=== PATIENT | female | born 1985 | race Caucasian/White ===

== ENCOUNTER 2016-10-01 21:32 | Inpatient (IN) | payer OTHER ==
[~2016-10-01] VITALS: Ht 167.6 cm; Wt 156.0 kg
[~2016-10-01 21:32] MED LIST: ACETAMINOPHEN325 M1 PO; AUGMENTIN 875875 M1 PO; BENTYL 10 MG CA10 MG; DICLOXACILLIN250 M1 PO; DICLOXACILLIN250 M2 PO; ENDOCET 5-3251 EACH PO; FLEXERIL PO; IBUPROFEN 600600 M1 PO; IBUPROFEN200 M2 PO; LEVEMIR SUBQ; METFORMIN HCL500 MG PO; NOHOMEMEDICATIONS; NORCO 5-325 TA1 EACH PO; OXYCHLOROSENE; OXYCODONE HCL5 M1 PO; PERCOCET 5-3251 EACH PO; PRED FORTE 1% EY5 M1 OPHTHALMIC; TYLENOL325 MG PO; VICODIN 5-5001 EACH PO
[2016-10-01] MEDS ORDERED: GLUCOTROL5 MG PO (21:51)
[2016-10-01 22:59] LABS: URINE BILIRUBIN NEGATIVE (Negative); URINE BLOOD 2+ (Negative); URINE COLOR YELLOW; URINE GLUCOSE-RANDOM* 2+ (Negative); URINE KETONES 1+ (Negative); URINE LEUKOCYTES-REFLEX TRACE (Negative); URINE PROTEIN (DIPSTICK) 2+ (Negative); URINE UROBILINOGEN 0.2 E.U./dl (0.2-1.0)
[2016-10-01 23:11] LABS: CASTS None Seen /LPF (None Seen); SQUAMOUS 4-10 Moderate /LPF (0-3); URINE RBC 3-10 Few /HPF (0-2); URINE WBC-REFLEX 6-15 Few /HPF (0-5)
[2016-10-01 23:12] LABS: CRYSTALS None Seen /LPF (None Seen)
[2016-10-01 23:19] LABS: HEMATOCRIT 39.1 % (37.0-47.0); HEMOGLOBIN 13.4 gm/dL (12.0-15.0); MCH 28.4 pg (26.0-34.0); MCHC 34.2 g/dL (28.0-37.0); PLATELET COUNT 407 thou/uL (150-400); RBC 4.71 mil/uL (4.20-5.00); RDW 14.6 % (10.5-14.5); WBC 17.3 thou/uL (4.0-11.0)
[2016-10-01 23:22] LABS: MANUAL DIFF YES
[2016-10-01 23:26] LABS: CALCIUM 9.4 mg/dL (8.5-10.1); POTASSIUM 4.1 mmol/L (3.5-5.1)
[2016-10-01 23:32] LABS: ALBUMIN 3.4 g/dL (3.4-5.0); TOTAL BILIRUBIN 0.4 mg/dL (<0.1-1.0); TOTAL PROTEIN 8.7 g/dL (6.4-8.2)
[2016-10-01 23:42] LABS: ABSOLUTE NEUTROPHILS 15.4 thou/uL (1.4-8.2); TOTAL CELL COUNT 100
[2016-10-02] VITALS (7 sets, daily range): BP systolic 125–149; BP diastolic 76–89
[2016-10-03] VITALS (7 sets, daily range): BP systolic 120–156; BP diastolic 74–93
[2016-10-03 05:11] LABS: GLYCOHEMOGLOBIN (HGB A1C) 9.3 % (4.8-5.6)
[2016-10-03 10:36] LABS: BASOPHILS 0.3 % (0.0-2.0); EOSINOPHILS 0.1 % (0.0-3.0); HEMATOCRIT 34.9 % (37.0-47.0); HEMOGLOBIN 11.8 gm/dL (12.0-15.0); LYMPHOCYTES 13.5 % (24.0-44.0); MCH 28.2 pg (26.0-34.0); MCHC 33.8 g/dL (28.0-37.0); MCV 83.4 fL (80.0-100.0); MONOCYTES 11.2 % (1.0-8.0); POLYS 74.9 % (36.0-66.0); RBC 4.18 mil/uL (4.20-5.00); RDW 14.6 % (10.5-14.5); WBC 9.4 thou/uL (4.0-11.0)
[2016-10-03 10:37] LABS: PLATELET COUNT 308 thou/uL (150-400)
[2016-10-03 10:38] LABS: MANUAL DIFF NO
[2016-10-03 10:57] LABS: CALCIUM 8.5 mg/dL (8.5-10.1); CREATININE 0.7 mg/dL (0.6-1.0); POTASSIUM 3.8 mmol/L (3.5-5.1)
[2016-10-04 04:40] VITALS: BP 136/93
[2016-10-04 06:13] LABS: HEMATOCRIT 31.8 % (37.0-47.0); HEMOGLOBIN 11.1 gm/dL (12.0-15.0); MCH 28.5 pg (26.0-34.0); MCV 81.6 fL (80.0-100.0); RBC 3.89 mil/uL (4.20-5.00); RDW 14.5 % (10.5-14.5); WBC 8.6 thou/uL (4.0-11.0)
[2016-10-04 06:29] LABS: CALCIUM 8.6 mg/dL (8.5-10.1); CREATININE 0.5 mg/dL (0.6-1.0); POTASSIUM 3.6 mmol/L (3.5-5.1)
[2016-10-04 08:01] VITALS: BP 161/103
[2016-10-04] MEDS ORDERED: HUMALOG100 UNIT/1 SUBQ (12:09)
[2016-10-04] MEDS ORDERED: LANTUS100 UNIT/M SUBQ (12:09)
[2016-10-04] MEDS ORDERED: KEPPRA 500 MG500 M1 PO (12:10)
[2016-10-04 12:46] VITALS: BP 161/103
[2016-10-04] MEDS ORDERED: KEFLEX500 MG PO (21:10)
== END 2016-10-04 13:23 | disposition home or self-care (01) | DRG 872 ==
LOC: ER 21:32 → 4W 10-02 00:13 → EROBS 10-02 00:13 → 4W 10-02 01:22
PROVIDERS: Hospitalist; Nurse Practitioner Acute Care; Physician Assistant
DX: A41.9 Sepsis, unspecified organism (principal); N12 Tubulo-interstitial nephritis, not specified as acute or chronic; Z68.43 Body mass index [BMI] 50.0-59.9, adult; N39.0 Urinary tract infection, site not specified; E66.01 Morbid (severe) obesity due to excess calories; E11.65 Type 2 diabetes mellitus with hyperglycemia; Z79.4 Long term (current) use of insulin; Z79.899 Other long term (current) drug therapy; Z91.048 Other nonmedicinal substance allergy status; Z88.8 Allergy status to other drugs, medicaments and biological substances
CPT/HCPCS: 10045

== ENCOUNTER 2019-05-15 05:00 | Emergency (ER) | payer OTHER ==
[~2019-05-15] VITALS: Ht 167.6 cm; Wt 171.3 kg
[~2019-05-15 05:00] MED LIST changes: +GLUCOTROL5 MG PO; +HUMALOG100 UNIT/1 SUBQ; +KEFLEX500 MG PO; +KEPPRA 500 MG500 M1 PO; +LANTUS100 UNIT/M SUBQ
[2019-05-15 05:40] LABS: ABSOLUTE NEUTROPHILS 7.8 thou/uL (1.4-8.2); BASOPHILS 0.6 % (0.0-2.0); EOSINOPHILS 2.8 % (0.0-3.0); HEMATOCRIT 40.1 % (37.0-47.0); HEMOGLOBIN 13.4 gm/dL (12.0-15.0); LYMPHOCYTES 26.5 % (24.0-44.0); MCH 27.6 pg (26.0-34.0); MCHC 33.4 g/dL (28.0-37.0); MCV 82.8 fL (80.0-100.0); MONOCYTES 5.2 % (1.0-8.0); PLATELET COUNT 393 thou/uL (150-400); POLYS 64.9 % (36.0-66.0); RBC 4.84 mil/uL (4.20-5.00); RDW 14.1 % (10.5-14.5); WBC 11.9 thou/uL (4.0-11.0)
[2019-05-15 05:49] LABS: CALCIUM 9.1 mg/dL (8.5-10.1); CREATININE 0.7 mg/dL (0.6-1.0); POTASSIUM 3.9 mmol/L (3.5-5.1)
[2019-05-15 05:49] LABS: URINE BILIRUBIN NEGATIVE (Negative); URINE BLOOD NEGATIVE (Negative); URINE CLARITY CLEAR; URINE COLOR YELLOW; URINE GLUCOSE-RANDOM* 3+ (Negative); URINE KETONES NEGATIVE (Negative); URINE LEUKOCYTES-REFLEX NEGATIVE (Negative); URINE NITRITE-REFLEX NEGATIVE (Negative); URINE PROTEIN (DIPSTICK) NEGATIVE (Negative); URINE UROBILINOGEN 0.2 E.U./dl (0.2-1.0)
[2019-05-15] MEDS ORDERED: CLINDAMYCIN HC300 MG PO (07:04)
[2019-05-15] MEDS ORDERED: NORCO 5-325 TA1 EAC1 PO (07:19)
[2019-05-15 07:25] VITALS: BP 108/65
== END 2019-05-15 07:25 | disposition home or self-care (01) ==
LOC: ER 05:00
PROVIDERS: Emergency Medicine Emergency Medical Services
DX: L03.311 Cellulitis of abdominal wall (principal); L02.211 Cutaneous abscess of abdominal wall; E11.9 Type 2 diabetes mellitus without complications; E66.01 Morbid (severe) obesity due to excess calories; Z88.8 Allergy status to other drugs, medicaments and biological substances; Z79.899 Other long term (current) drug therapy; Z79.4 Long term (current) use of insulin